=== PATIENT | male | born 1990 ===

== ENCOUNTER 2024-11-19 15:43 | Emergency (ER) | payer MEDICAID ==
[2024-11-19 16:21] LABS: BASOPHILS PERCENT AUTO 0.2 % (0.0-1.0); HEMATOCRIT 43.3 % (42.0-52.0); IMMATURE GRAN ABSOLUTE AUTO 0.01 K/mm3 (0.00-0.05); IMMATURE GRAN PERCENT AUTO 0.2 % (0.0-0.4); LYMPHOCYTES ABSOLUTE AUTO 0.6 K/mm3 (1.0-4.8); LYMPHOCYTES PERCENT AUTO 13.4 % (24.0-44.0); MEAN CORPUSCULAR HEMOGLOBIN 31.1 pg (28.0-32.0); MEAN CORPUSCULAR HGB CONC 34.6 g/dl (32.0-36.0); MEAN CORPUSCULAR VOLUME 89.8 fl (83.0-99.0); MEAN PLATELET VOLUME 10.8 fl (9.4-12.4); MONOCYTES ABSOLUTE AUTO 0.3 K/mm3 (0.0-0.8); MONOCYTES PERCENT AUTO 8.3 % (0.0-8.0); NEUTROPHILS ABSOLUTE AUTO 3.2 K/mm3 (1.8-7.7); NEUTROPHILS PERCENT AUTO 76.9 % (41.0-71.0); PLATELET COUNT,PLT 151 K/mm3 (150-400); RED BLOOD CELL COUNT 4.82 M/mm3 (4.52-5.90); WHITE BLOOD CELL COUNT,WBC 4.11 K/mm3 (3.9-11.3)
[2024-11-19 16:42] LABS: ALBUMIN 3.7 g/dl (3.4-5.0); ANION GAP 10.7 (5-15); BILIRUBIN TOTAL 0.3 mg/dL (0.2-1.0); BUN/CREATININE RATIO 13.6 (14-18); CALCIUM 8.2 mg/dL (8.5-10.1); CREATININE 1.1 mg/dL (0.7-1.3); EST CRCL DRUG DOSING (CG) 102.04 mL/min; PROTEIN TOTAL,TP 7.4 g/dl (6.4-8.2)
[2024-11-19 16:46] LABS: POTASSIUM,K 3.7 mEq/L (3.5-5.1)
[2024-11-19] MEDS: Sodium Chloride 0.9% 1,000 ML IV ONE (17:13)
[2024-11-19] MEDS: Ketorolac 30 MG/ML SDV IVPUSH ONE (18:40)
[2024-11-19] MEDS: Oseltamivir 75 MG Cap PO ONE (18:50)
== END 2024-11-19 18:58 | disposition home or self-care (01) ==
LOC: JD.ED 15:43
DX: J10.1 Influenza due to other identified influenza virus with other respiratory manifestations (principal); Z88.8 Allergy status to other drugs, medicaments and biological substances
CPT/HCPCS: 36415; 71046; 80053; 85025; 87428; 96361; 96374; 99283; A9270; J1885; J7030